=== PATIENT | male | born 1965 | race Caucasian/White ===

== ENCOUNTER 2019-02-06 12:05 | Inpatient (IN) ==
--- NOTE | 2019-01-16 10:23 | PAT Medication Instructions ---
Medication Instructions Date of Service January 16, 2019 Home Medications aspirin [Aspir-81] 81 mg PO QAM carvedilol [Coreg] 12.5 mg PO BID diclofenac sodium 75 mg PO QAM hydrochlorothiazide 50 mg PO QAM lisinopril 20 mg PO QAM ASK your surgeon for instructions diclofenac sodium 75 mg PO QAM DO NOT take the morning of surgery hydrochlorothiazide 50 mg PO QAM lisinopril 20 mg PO QAM Take morning of surgery With a small sip of water, OTHERWISE NOTHING TO EAT OR DRINK AFTER MIDNIGHT: aspirin [Aspir-81] 81 mg PO QAM carvedilol [Coreg] 12.5 mg PO BID Take evening before surgery carvedilol [Coreg] 12.5 mg PO BID Other Notes If you have any questions please call us at [phone] or [phone] or [phone] or [phone]
--- NOTE | 2019-01-16 12:34 | Anesthesiology Consultation ---
Date of Service January 16, 2019 Assessment & Plan (1) Encounter for pre-operative examination: - Cardio= 01/08/19= S/P cardiac cath done 01/03/19 noting dCX 50%. Moderate diffuse disease of the terminal AV groove branch and terminal LAD. No critical blockages noted [id number] global HK of LV EF 45-50% (EF improved from 35% after starting Coreg per cardio). Coreg dose further increased at cardio appt 01/08. Scheduled for sleep study (02/01). "Patient at this point is an acceptable risk to proceed with the above intended right hip surgery provided [he] be monitored for ischemia treated accordingly keeping pulse oximetry above 90% at all times and HCT above 30 at all times." Patient s/p sleep study 02/01 ([facility]; P: [phone]). Attempting to obtain results of sleep study report prior to surgery. If able to be obtained, will add addendum indicating results. - PCP= 01/23/19= "medically cleared for surgery." Chart Review Chart Review: Acceptable Risk for Surgery and Patient seen in Pre Admission T esting Teaching & Discussion Pre-Anesthesia Teaching/Discussion Notes: Instructed NPO after midnight before surgery,except medications with 15 cc of water. Medication instructions provided according to the PAT guidelines. History Surgery Operation Date: 02/06/19 09:45 Proposed Procedures p Right Total Hip Arthroplasty - Puneet De La Cruz DO Height/Weight Height: 6 ft Weight: 132.9 kg Allergies Allergy/AdvReac Type Severity Reaction Status Date / Time No Known Allergies Allergy Verified 01/12/19 08:46 Medications Home Medications Medication Instructions Recorded Confirmed Last Taken aspirin [Aspir-81] 81 mg PO QAM 01/12/19 01/12/19 Unknown carvedilol [Coreg] 12.5 mg PO BID 01/12/19 01/12/19 Unknown diclofenac sodium 75 mg PO QAM 01/12/19 01/12/19 Unknown hydrochlorothiazide 50 mg PO QAM 01/12/19 01/12/19 Unknown lisinopril 20 mg PO QAM 01/12/19 01/12/19 Unknown Past Medical History Medical History CAD (coronary artery disease) NON-OBSTRUCTIVE Hyperlipidemia BORDERLINE Hypertension TONI (obstructive sleep apnea) POSSIBLE; PLAN FOR FUTURE SLEEP STUDY Obesity Osteoarthritis Past Family History Family History Father Family history of reaction to anesthesia POST OP CARDIAC SURGERY-"FATHER WAS IN AND OUT FOR A WEEK" Past Surgical History Surgical History History of cardiac cath 12/2018= NO STENTS History of total hip arthroplasty LEFT Past Anesthesia History No Hx of Anesthesia Complications Father- Post-op "in and out of it" for a week History of PONV No Motion Sickness Screening History of Motion Sickness: No Social History Smoking Status: Never smoker Do You Dip or Chew Tobacco: No Hx Alcohol Use: No Hx Substance Use: No substance use type: does not use Exercise / Class Metabolic Activity II 4-5 Yardwork/Stairs/Walk up hill Review of Systems Patient denies chest pain, shortness of breath, dyspnea on exertion, cough, wheezing, palpitations. Physical Exam Vital Signs VITALS BP 132/78 P 49 TEMP 97.8 SP02 96%RA RESP 18 PHYSICAL Full neck and c-spine range of motion. Full TMJ range of motion. TMD 3.5 finger breaths Mallampati Score 3 Dentition: several chipped sides/molars per patient, missing sides Lungs: clear throughout to auscultation Cardiac: regular rate and rhythm, no murmurs noted Spine: normal Carotid arteries: negative bruit Extremities: no edema Testing Electrocardiogram Date: 01/03/19 NSR with sinus arrhythmia at 74bpm. Chest X-Ray Date: 01/12/19 Findings: + NAD No acute cardiopulmonary findings. Mild cardiomegaly. Echocardiogram Date: 11/17/18 Mild to moderately technical difficulty 2/2 poor acoustic windows. Global HK 46%. Grade I DD. Trace to mild TR. Borderline high PAP 32mmhg. Stress Test Date: 12/19/18 Type: nuclear (LEXISCAN) No reversible defects however there appears to be transient ischemia dilatation of the LV cavity suggestive of multivessel/balanced ischemia. Ischemic ST/T changes on stress EKG. EF 35%. Global HK. Suggestive of dilatory cardiomyopathy. Pulse oximetry stable between 94-98% O2 on RA. Cardiac Catheterization Date: 01/03/19 dCX 50%. Moderate diffuse disease of the terminal AV groove branch ang terminal LAD. No critical blockages noted [id number] global HK of LV EF 45-50% (EF improved from 35% after starting Coreg per cardio). Laboratory Results 01/16/19 12:54 01/16/19 12:54 Blood Type O Positive 01/16/19 12:54 Antibody Screen NEGATIVE 01/16/19 12:54 PT 10.3 Seconds (9.0-12.0) 01/16/19 12:54 INR 1.0 (0.9-1.1) 01/16/19 12:54 APTT 29.1 Seconds (21.0-31.0) 01/16/19 12:54 Hemoglobin A1c 6.3 % (4.5-5.6) H 01/16/19 12:54 Urine Color Yellow 01/16/19 Unknown Urine Appearance Clear (Clear) 01/16/19 Unknown Urine pH 5.0 (4.5-7.5) 01/16/19 Unknown Ur Specific [place] 1.020 (1.000-1.030) 01/16/19 Unknown Urine Protein Negative (Negative) 01/16/19 Unknown Urine Glucose (UA) Negative (Negative) 01/16/19 Unknown Urine Ketones Negative (Negative) 01/16/19 Unknown Urine Nitrite Negative (Negative) 01/16/19 Unknown Ur Leukocyte Esterase Negative (Negative) 01/16/19 Unknown Urine WBC (Auto) 1-5 /hpf (0-5) 01/16/19 Unknown Urine RBC (Auto) 0-4 /hpf (0-4) 01/16/19 Unknown U Hyaline Cast (Auto) 1-5 /lpf (0-5) 01/16/19 Unknown U Epithel Cells (Auto) 0-5 /lpf (0-5) 01/16/19 Unknown Urine Bacteria (Auto) Negative (Negative) 01/16/19 Unknown
[2019-01-16 13:27] LABS: Basophils # (auto) 0.04 K/uL (0-0.2); Basophils % (auto) 0.5 %; Eosinophils # (auto) 0.18 K/uL (0-0.5); Eosinophils % (auto) 2.4 %; Hematocrit (blood only) 43.3 % (42-52); Hemoglobin 15.3 g/dL (14.0-18.0); Immature Granulocytes # (auto) 0.06 K/uL (0.00-0.02); Immature Granulocytes % (auto) 0.8 %; Lymphocytes # (auto) 1.72 K/uL (1.2-3.4); Lymphocytes % (auto) 23.1 %; Mean Corpuscular Hgb Conc 35.3 g/dL (32-36); Mean Corpuscular Volume 87.1 fL (80-100); Mean Platelet Volume 11.3 fL (7.4-10.4); Monocytes # (auto) 0.94 K/uL (0.11-0.59); Monocytes % (auto) 12.6 %; Neutrophils # (auto) 4.52 K/uL (1.4-6.5); Neutrophils % (auto) 60.6 %; Platelet Count 242 K/uL (130-400); RDW Coefficient of Variation 13.1 % (11.5-14.5); Red Blood Count 4.97 M/uL (4.7-6.1); White Blood Count 7.46 K/uL (4.8-10.8)
[2019-01-16 13:34] LABS: Appearance Urine Clear (Clear); Bacteria Urine Automated Negative (Negative); Bilirubin Urine Negative (Negative); Blood Urine 1+ (Negative); Color Urine Yellow; Epithelial Cell Urine Auto 0-5 /lpf (0-5); Glucose Urine UA Negative (Negative); Ketones Urine Negative (Negative); Leukocyte Esterase Urine Negative (Negative); Nitrite Urine Negative (Negative); Protein Urine Negative (Negative); RBC Urine Automated 0-4 /hpf (0-4); Urobilinogen Urine Negative (Negative)
[2019-01-16 13:42] LABS: Partial Thromboplastin Ratio 1.1; Partial Thromboplastin Time 29.1 Seconds (21.0-31.0); Prothrombin Time 10.3 Seconds (9.0-12.0)
[2019-01-16 13:49] LABS: Albumin Level 4.2 gm/dl (3.4-5.0); Calcium 9.1 mg/dl (8.5-10.1); Creatinine Clr Calc Pharmacy 94.5 ml/min; Est GFR (African American) 74.5; Est GFR (Non-African American) 64.2; Potassium 3.6 mmol/L (3.5-5.1)
[2019-01-16 14:00] LABS: Estimated Average Glucose 134 mg/dl; Hemoglobin A1C 6.3 % (4.5-5.6)
--- NOTE | 2019-01-16 14:05 | XRay Report ---
XR chest Pre-admission PA/Lat CLINICAL HISTORY: Preoperative evaluation. COMPARISON STUDY: No previous studies for comparison. FINDINGS: Lung volumes are normal. There is no pneumothorax or pleural effusion. There is no consolid ation or evidence for pulmonary edema. There is mild cardiomegaly. Mediastinal contours are otherwise normal. IMPRESSION: 1. No acute cardiopulmonary findings. 2. Mild cardiomegaly. Electronically signed by: Álvaro Truong M.D. 01/16/2019 2:04 PM
--- NOTE | 2019-02-05 17:31 | History & Physical Report ---
Date of Service February 05, 2019 Assessment & Plan (1) Degenerative joint disease (DJD) of hip: I have indicated the patient for right posterior total hip replacement. The risks, benefits and complications of surgery were explained to the patient which include but not limited to infection, acute blood loss, DVT/PE, injury to nerves, vessels, bone, soft tissue, arthrofibrosis, chronic pain, failure of the prosthesis, hip dislocation, leg length discrepancy, need for additional surgery, cardiac and pulmonary events and . The patient wished to proceed with surgery and informed consent was obtained at this time. We will plan for ASA BID post-operatively for DVT prophylaxis. Upon discharge the patient will be discharged home with home health services. Appropriate clearances by PCP and cardio were obtained. History of Present Illness Chief Complaint: Right hip pain/djd Primary Care Provider: Dr. Kylee Vergara The patient is a 53 year old male who presents with complaints of severe right hip pain and DJD. The patient has failed outpatient conservative treatments to this point which included NSAIDS, corticosteroid injection and home exercise, walking program. The patient's pain and limited function have progressed to the point where they severely hinder their activities of daily living and they no longer tolerate exercise programs. They are requesting to proceed with total hip replacement surgery. Allergies Allergy/AdvReac Type Severity Reaction Status Date / Time No Known Allergies Allergy Verified 02/06/19 12:36 Home Medications Home Medications Medication Instructions Recorded Confirmed Type aspirin [Aspir-81] 81 mg PO QAM 01/12/19 02/06/19 History carvedilol [Coreg] 12.5 mg PO BID 01/12/19 02/06/19 History diclofenac sodium 75 mg PO QAM 01/12/19 02/06/19 History hydrochlorothiazide 50 mg PO QAM 01/12/19 02/06/19 History lisinopril 20 mg PO QAM 01/12/19 02/06/19 History Past Med/Surg History Medical History CAD (coronary artery disease) NON-OBSTRUCTIVE Hyperlipidemia BORDERLINE Hypertension TONI (obstructive sleep apnea) POSSIBLE; PLAN FOR FUTURE SLEEP STUDY Obesity Osteoarthritis Surgical History History of cardiac cath 12/2018= NO STENTS History of total hip arthroplasty LEFT Family History Father Family history of reaction to anesthesia POST OP CARDIAC SURGERY-"FATHER WAS IN AND OUT FOR A WEEK" Social History Preferred Language: Mohawk Communication Ability: Effective Drywaller Required: No Beliefs That Will Affect Care: None Current Living Situation: Spouse and Family Other Information That Helps Us Care for You: No Feels Safe at Home: Yes Safety Concerns: Feels Safe At This Time Smoking Status: Never smoker Hx Alcohol Use: No Hx Substance Use: No Review of Systems All systems reviewed & are unremarkable except as noted in HPI & below Physical Exam Physical Exam: RLE NVSI +EHL/FHL/TA/GS SILT grossly, +2 DP pulse, compartments soft NT, limited painful ROM. Constitutional: WD/WN, vitals as above Eyes: PERRL, conjunctivae normal, anicteric sclerae ENMT: external ear and nose normal, oropharynx normal Neck: trachea midline, no thyromegaly Respiratory: normal respiratory effort, lungs clear to auscultation Cardiovascular: RRR, no murmur, no edema Gastrointestinal (Abdomen): normal bowel sounds, soft, nontender, no hepatosplenomegaly Musculoskeletal: no cyanosis or clubbing, extremities motor strength 5/5 Skin: no rashes, warm and dry Neurologic: patellar DTR's 2+ bilat, sensation intact Psychiatric: A+Ox3, euthymic affect Lymphatic: no cervical or axillary lymphadenopathy Results & Data Diagnostic Findings Multiple views of the hip demonstrates severe DJD with complete loss of the joint space. +osteophytes, +sclerosis, +subchondral cysts.
[~2019-02-06 12:05] MED LIST: ACETAMINOPHEN 500 MG TAB PO SCH; BUPIVACAINE 0.5 % 5 MG/1 ML PF 10ML VIAL ONE; CEFAZOLIN 3000MG 65 ML IV SCH; CeleBREX 200 MG CAP PO SCH; FAMOTIDINE 20 MG TAB PO SCH; GABAPENTIN 300 MG x 3 PO SCH; ROPIVACAINE 0.5% HCL/PF 150 MG, BUPIVACAINE 0.5% MPF 30 ML, EPINEPHrine 30MG/30ML (OR U... INFIL SCH; TRANEXAMIC ACID 1,000 MG **IV Intra-op IV SCH; TRANEXAMIC ACID 1,000 MG **IV Pre-op IV SCH; dexAMETHasone 4 MG TAB PO SCH
[2019-02-06] MEDS: LR 500ML BOLUS, THEN 15ML/HR IV SCH ×2 (12:41→16:11)
--- NOTE | 2019-02-06 13:34 | History & Physical Bridge Note ---
Date of Service February 06, 2019 History & Physical Bridge Note I have examined the patient, reviewed the History & Physical and in the interval since the performance of the History & Physical I have noted the following changes of clinical significance: no changes noted
[2019-02-06] MEDS ORDERED: EPINEPHrine INJ 1 MG/ML AMP ONE (13:39)
[2019-02-06] MEDS ORDERED: LIDOCAINE HCL 2% 2 ML VIAL/AMP(20MG/ML) INFIL ONE (14:11)
[2019-02-06] MEDS ORDERED: fentaNYL citrate 100 MCG/2 ML VIAL ONE (14:11)
[2019-02-06] MEDS ORDERED: MIDAZOLAM HCL 1 MG/ML 2ML VIAL ONE ×2 (14:11)
[2019-02-06] MEDS ORDERED: PROPOFOL IV EMULSION 10 MG/ML 20 ML VIAL IV ONE ×3 (14:11→18:28)
[2019-02-06] MEDS ORDERED: ORTHO JOINT ANESTHETIC ONE (15:49)
[2019-02-06] MEDS ORDERED: BACITRACIN INJ 50,000 UNIT VIAL ONE (15:49)
[2019-02-06] MEDS ORDERED: POVIDONE-IODINE OP SOLN 30 ML BTL ONE (15:49)
[2019-02-06] MEDS ORDERED: ONDANSETRON INJ 2 MG/ML 2 ML VIAL IV PRN ×2 (16:57→19:56)
[2019-02-06] MEDS ORDERED: ePHEDrine sulfate 50 MG/ML AMP IV PRN (16:57)
[2019-02-06] MEDS ORDERED: ATROPINE SULFATE 0.1 MG/ML 10ML SYR IV PRN (16:57)
[2019-02-06] MEDS ORDERED: fentaNYL citrate 100 MCG/2 ML VIAL IV PRN (16:57)
[2019-02-06] MEDS ORDERED: ONDANSETRON INJ 2 MG/ML 2 ML VIAL ONE (17:01)
[2019-02-06] MEDS ORDERED: DEXAMETHASONE SOD INJ 4 MG/ML VIAL ONE (17:01)
[2019-02-06] MEDS ORDERED: DiphenhydrAMINE HCL 50 MG/ML VIAL ONE (17:01)
[2019-02-06] MEDS ORDERED: ePHEDrine sulfate 50 MG/ML SYR ONE (17:25)
[2019-02-06] MEDS ORDERED: PHENYLEPHRINE 100MCG/ML 5ML SYR ONE (17:39)
[2019-02-06] MEDS ORDERED: ALBUMIN HUMAN 5% 12.5 GM/250 ML VIAL IV ONE (17:55)
--- NOTE | 2019-02-06 18:39 | Post Operative Brief Note ---
Immediate Post Op Note v1 Date of Surgery February 06, 2019 Pre & Post Diagnosis Operation Date: 02/06/19 14:45 Pre-Op Diagnosis: RIGHT HIP OSTEOARTHRITIS Post-Op Diagnosis: RIGHT HIP OSTEOARTHRITIS Procedure Operation Date: 02/06/19 14:45 Actual Procedures p Right Total Hip Arthroplasty, uncemented (Right) - Puneet De La Cruz DO Surgeon Puneet De La Cruz DO Steam Powerplant Supervisor Eduardo Scott Estimated Blood Loss 175 Findings Consistent with Post-Op Diagnosis Fluids 800 cc LR Specimens femoral head Anesthesia Type Spinal MAC Complications none Disposition Disposition: Recovery Room Overlapping Procedure I was present for: the critical portions of procedure. I was immediately available: during the entire case. Back up surgeon: was not required during procedure.
--- NOTE | 2019-02-06 18:49 | Operative Report ---
Post Operative Report Pre & Post Diagnosis Operation Date: 02/06/19 14:45 Pre-Op Diagnosis: RIGHT HIP OSTEOARTHRITIS Post-Op Diagnosis: RIGHT HIP OSTEOARTHRITIS Procedure Operation Date: 02/06/19 14:45 Actual Procedures p Right Total Hip Arthroplasty, uncemented (Right) - Puneet De La Cruz DO Surgeon Puneet De La Cruz DO Ornamental Ironworker Eduardo Scott Estimated Blood Loss 175 Findings Consistent with Post-Op Diagnosis Specimens Femoral head Anesthesia Type Spinal MAC Complications none Disposition Disposition: Recovery Room Indications The patient is a 53-year-old male who presents with severe progressive right hip DJD who has failed outpatient conservative treatments. I indicated the patient for a total hip replacement and the risks and benefits were explained in detail which included but not limited to infection, bleeding, blood clot, damage to surrounding bone, nerves, vessels, soft tissue, hip dislocation, failure of the prosthesis, leg length discrepancy, need for additional surgery and . The patient agreed to proceed with replacement of the hip and informed consent was obtained. Appropriate clearances were obtained. Description of Procedure Following induction of adequate spinal anesthesia, the patient was transferred to the OR table and placed in lateral decubitus position with left hip down. The right hip was prepped and draped in the typical sterile fashion. A timeout was performed, patient identified and site gautam confirmed. Appropriate antibiotics were given. A standard posterolateral/Josh-Langenbeck incision was made. Subcutaneous tissue was sharply dissected. Electrocautery was utilized for hemostasis. The fascia was incised throughout the length of the wound and retracted with the Charnley retractor. The bursa was taken down and the short external rotators were identified. The piriformis was tagged with #1 Vicryl. The short external rotators and capsule were divided from the posterior aspect of the femur using electrocautery. The posterior capsule was tagged with #1 Vicryl. Both external rotators and posterior capsule were swept posterior and protected, along with protecting the sciatic nerve. The hip was dislocated by flexion and internally rotation in a controlled manner and exposure of the femoral neck was gained with an old-style Hohmann and a blunt cobra retractor. A femoral cutting guide was utilized for making the appropriate level femoral neck cut with reciprocating saw. The femoral head was removed, measured and reserved on the back table. Next, attention was turned to the acetabulum. A posterior and anterior offset retractor was placed to gain adequate exposure. Acetabular labrum as well as posterior capsule elements were removed using electrocautery and forceps. Fovea centralis was cleared of all soft tissue. Sequential reaming was performed starting at 48 mm and carried up to a 55 mm and decision was made to proceed with impaction of a 50 mm trabecular metal cup. This was impacted and held using a single 30 mm bone screw. The trial acetabular liner was placed at this time. Next, attention was turned to the proximal femur where a Bovie and pickup was used to further clear short external rotators from their insertion on the femur. Box osteotome and canal finder was used to gain access to the femoral canal and the lateral reamer on power was used to further open the proximal lateral canal. Sequentially rasping was carried up to a 15 which gave good fit and fill of the proximal femur. A trial reduction was carried out with a extended offset femoral neck component a 40+3.5 mm femoral head. The trial reduction was stable in all degrees of rotation with no [id number] impingement. The hip was dislocated, trial components were removed and access to the acetabulum was re-established. The trial liner was removed and the cup was irrigated to ensure all debris was removed. The final acetabular liner was inserted and properly seated in the cup. Access to the femur was once more gained and the size 15 femoral stem with extended offset was impacted into position. The hip was once more assessed with the 40+3.5 mm femoral head. Stability was accessed and found to be excellent with equal leg lengths. The hip was dislocated for the last time and the final 40+3.5 ceramic femoral head was impacted in place and the hip was reduced. Range of motion was checked once again and found to be stable. The wound was copiously irrigated with sterile saline solution. The annie-incisional soft tissue was injected utilizing [place] ortho mix which includes a combination of Ropivicaine 0.5% 150mg, Bupivicaine 0.5%/Epinephrine 1:200,000 30ml, Toradol 30mg, Dexamethasone 4mg, Ketamine 10mg, Clonidine 100mcg and NSS 30ml Orthomix solution. The piriformis, external rotators and capsule were repaired to the greater trochanter through bone tunnels using #5 FiberWire. The fascia was closed using #1 Vicryl, subcutaneous tissue was closed using 2-0 Vicryl, and skin was closed with marley. Sterile dressings were applied which included silverlon dressing. The patient tolerated the procedure well and was transported to PACU in stable condition. Due to the complex nature of the procedure, the entire surgery was performed with the operational assistance of Eduardo Scott PA-C. The certified ophthalmic assistant, under direct supervision, was involved in the actual performance of all aspects of the surgical procedure including patient positioning, hemostasis, tissue retraction, instrument management and wound closure. I attest to the content of the Intraoperative Record and any orders documented therein. Any exceptions are noted below.
--- NOTE | 2019-02-06 19:35 | Anesthesiology Progress Note ---
Date of Service February 06, 2019 Anesthesia Post Procedure Vital Signs Vital Signs: Temp Pulse Pulse Resp BP BP Pulse Ox 02/06/19 19:20 63 24 156/75 H 99 02/06/19 19:10 76 17 137/73 96 02/06/19 19:02 36.3 C L 70 16 116/67 95 02/06/19 12:38 36.9 C 82 20 155/99 H 96 Pain Intensity Right Hip: Pain Intensity: 0 Notes Mental Status: alert / awake / arousable Patient Amnestic to Procedure: Yes Nausea / Vomiting: adequately controlled Pain: adequately controlled Airway Patency, RR, SpO2: stable & adequate BP & HR: stable & adequate Hydration State: stable & adequate Neuraxial Anesthesia: was administered and sensory block is resolving Anesthetic Complications: no major complications apparent
--- NOTE | 2019-02-06 19:37 | XRay Report ---
AP PELVIS, CROSSTABLE LATERAL RIGHT HIP History: Right total hip arthroplasty. Degenerative arthritis. Postop. FINDINGS: The patient is status post a right total hip arthroplasty. The hardware is intact. No fract ure or dislocation. Skin marley are in place. Evidence for prior left total hip arthroplasty. IMPRESSION: Right total hip arthroplasty. No evidence for hardware complication Electronically signed by: Win Ramirez M.D. 02/06/2019 7:36 PM
[2019-02-06] MEDS ORDERED: OXYCODONE HCL IR 5 MG TAB (IMMEDIATE RELEASE) PO PRN (19:56)
[2019-02-06] MEDS ORDERED: NALOXONE HCL 0.4 MG/1 ML VIAL/CARP IV PRN (19:56)
[2019-02-06] MEDS ORDERED: METOCLOPRAMIDE HCL INJ 5 MG/ML 2 ML VIAL IV PRN (19:56)
[2019-02-06] MEDS ORDERED: BISACODYL 10 MG SUPP PR PRN (19:56)
[2019-02-06] MEDS ORDERED: HYDROmorphone INJ 0.5 MG/0.5 ML SYR IV PRN (19:56)
[2019-02-06] MEDS ORDERED: MAGNESIUM HYDROXIDE SUSP 30 ML UDC PO PRN (19:56)
[2019-02-06] MEDS: SODIUM CHLORIDE 0.9% 1000ML 1,000 ML IV SCH (20:08)
[2019-02-06] MEDS ORDERED: SENNA 8.6 MG TAB PO SCH (21:00)
--- NOTE | 2019-02-06 21:15 | Orthopedic Progress Note ---
Date of Service February 06, 2019 Assessment & Plan (1) Degenerative joint disease (DJD) of hip: s/p Right JERROD -Ancef x 24 -DVT ppx: ASA BID, SCDs, TEDS -WBAT RLE -Posterior hip precautions -PT/OT -PO XR - Well aligned well fixed orthopedic prothesis without fracture/dislocation -am labs -DC planning - home with HH Subjective Post Operative Progress Note Patient seen in PACU, comfortable, denies complaints, pain well controlled, no acute issues. Physical Exam Vital Signs (Past 24 Hours): Last Vital Signs Temp 36.4 C L 02/06/19 21:10 Pulse 74 02/06/19 21:10 Resp 20 02/06/19 21:10 BP 147/74 H 02/06/19 21:10 Pulse Ox 96 02/06/19 21:10 Physical Exam: RLE NVSI +EHL/FHL/TA/GS SILT grossly, +2 DP pulse, compartments soft NT, dressing cdi. Constitutional: WD/WN, vitals as above
[2019-02-06] MEDS: ACETAMINOPHEN 500 MG TAB PO SCH (21:36)
[2019-02-06] MEDS: CARVEDILOL 12.5 MG TAB PO SCH (21:36)
[2019-02-06] MEDS: KETOROLAC 30 MG/ML VIAL IV SCH (21:36)
[2019-02-06] MEDS: DOCUSATE SODIUM 100 MG CAP PO SCH (21:36)
[2019-02-07] MEDS: CEFAZOLIN 2000MG 2,000 MG/15 ML SYR IV SCH ×2 (00:14→08:42)
[2019-02-07] MEDS ORDERED: PNEUMOCOCCAL POLYSACCHARIDES 25 MCG/0.5 ML VIAL/SYR IM ONE (01:30)
[2019-02-07] MEDS ORDERED: PNEUMOCOCCAL ADMINISTRATION CHARGE ONE (01:30)
[2019-02-07] MEDS ORDERED: INFLUENZA ADMINISTRATION CHARGE ONE (01:30)
[2019-02-07] MEDS ORDERED: INFLUENZA VIRUS QUAD VACCINE 0.5 ML SYR IM ONE (01:30)
[2019-02-07] MEDS: KETOROLAC 30 MG/ML VIAL IV SCH ×2 (06:03→12:19)
[2019-02-07] MEDS: ACETAMINOPHEN 500 MG TAB PO SCH ×2 (06:04→13:59)
[2019-02-07] MEDS: SODIUM CHLORIDE 0.9% 1000ML 1,000 ML IV SCH (06:04)
[2019-02-07 06:47] LABS: Basophils # (auto) 0.01 K/uL (0-0.2); Basophils % (auto) 0.1 %; Hematocrit (blood only) 35.2 % (42-52); Hemoglobin 12.4 g/dL (14.0-18.0); Immature Granulocytes # (auto) 0.05 K/uL (0.00-0.02); Immature Granulocytes % (auto) 0.4 %; Lymphocytes # (auto) 0.84 K/uL (1.2-3.4); Lymphocytes % (auto) 6.6 %; Mean Corpuscular Hgb Conc 35.2 g/dL (32-36); Mean Corpuscular Volume 86.7 fL (80-100); Mean Platelet Volume 10.4 fL (7.4-10.4); Monocytes # (auto) 0.67 K/uL (0.11-0.59); Monocytes % (auto) 5.3 %; Neutrophils # (auto) 11.13 K/uL (1.4-6.5); Neutrophils % (auto) 87.6 %; Platelet Count 214 K/uL (130-400); RDW Coefficient of Variation 12.8 % (11.5-14.5); RDW Standard Deviation 40.9 fL (36.4-46.3); Red Blood Count 4.06 M/uL (4.7-6.1)
[2019-02-07 07:13] LABS: BUN Creatinine Ratio 16.8 (10-20); Est GFR (African American) 87.7; Est GFR (Non-African American) 75.7; Potassium 3.6 mmol/L (3.5-5.1)
--- NOTE | 2019-02-07 08:27 | Anesthesiology Progress Note ---
Date of Service February 07, 2019 Anesthesia Post Procedure Vital Signs Vital Signs: Temp Pulse Pulse Pulse Resp BP BP 02/07/19 07:01 36.5 C 74 18 151/87 H 02/07/19 03:30 36.4 C L 69 18 137/79 02/07/19 00:20 02/07/19 00:00 36.5 C 72 18 131/77 02/06/19 22:56 36.4 C L 76 18 154/77 H 02/06/19 21:53 36.4 C L 75 18 171/76 H 02/06/19 21:10 36.4 C L 74 20 147/74 H 02/06/19 20:26 36.4 C L 74 18 160/87 H 02/06/19 19:50 36.6 C 74 16 145/78 H 02/06/19 19:40 76 15 132/71 02/06/19 19:30 36.3 C L 78 19 118/92 02/06/19 19:20 63 24 156/75 H 02/06/19 19:10 76 17 137/73 02/06/19 19:02 36.3 C L 70 16 116/67 02/06/19 12:38 36.9 C 82 20 155/99 H Pulse Ox Pulse Ox 02/07/19 07:01 99 02/07/19 03:30 98 02/07/19 00:20 96 02/07/19 00:00 96 02/06/19 22:56 96 02/06/19 21:53 95 02/06/19 21:10 96 02/06/19 20:26 97 02/06/19 19:50 98 02/06/19 19:40 99 02/06/19 19:30 99 02/06/19 19:20 99 02/06/19 19:10 96 02/06/19 19:02 95 02/06/19 12:38 96 Pain Intensity Right Hip: Pain Intensity: 0 Notes Notes: patient in BR, ELIEL.
[2019-02-07] MEDS: DOCUSATE SODIUM 100 MG CAP PO SCH (08:38)
[2019-02-07] MEDS: CARVEDILOL 12.5 MG TAB PO SCH (08:39)
[2019-02-07] MEDS ORDERED: MULTIVITAMIN TAB PO SCH (09:00)
[2019-02-07] MEDS ORDERED: LISINOPRIL 20 MG TAB PO SCH (09:00)
--- NOTE | 2019-02-07 10:16 | Orthopedic Progress Note ---
Date of Service February 07, 2019 Assessment & Plan (1) Degenerative joint disease (DJD) of hip: s/p Right JERROD POD#1 -Ancef x 24 -DVT ppx: ASA BID, SCDs, TEDS -WBAT RLE -Posterior hip precautions -PT/OT -PO XR - Well aligned well fixed orthopedic prothesis without fracture/dislocation -am labs - hgb 12.4 -DC planning - home with HH Subjective Post Operative Progress Note Patient seen in PACU, comfortable, denies complaints, pain well controlled, no acute issues. Physical Exam Vital Signs (Past 24 Hours): Last Vital Signs Temp 36.5 C 02/07/19 07:01 Pulse 74 02/07/19 07:01 Resp 18 02/07/19 07:01 BP 151/87 H 02/07/19 07:01 Pulse Ox 99 02/07/19 07:01 Physical Exam: RLE NVSI +EHL/FHL/TA/GS SILT grossly, +2 DP pulse, compartments soft NT, dressing cdi. Constitutional: WD/WN, vitals as above
[2019-02-07] MEDS ORDERED: CeleBREX 200 MG CAP PO SCH (21:00)
[2019-02-07] MEDS ORDERED: ASPIRIN 325 MG ECTAB PO SCH (21:00)
--- NOTE | 2019-02-07 21:21 | Discharge Summary ---
Date of Service February 07, 2019 Admission HPI Per Admitting Provider The patient is a 53 year old male who presents with complaints of severe right hip pain and DJD. The patient has failed outpatient conservative treatments to this point which included NSAIDS, corticosteroid injection and home exercise, walking program. The patient's pain and limited function have progressed to the point where they severely hinder their activities of daily living and they no longer tolerate exercise programs. They are requesting to proceed with total hip replacement surgery. Principal Diagnosis Right total hip replacement Discharge Exam RLE NVSI +EHL/FHL/TA/GS SILT grossly, +2 DP pulse, compartments soft NT, dressing cdi. Constitutional WD/WN, vitals as above Eyes PERRL, conjunctivae normal, anicteric sclerae ENMT external ear and nose normal, oropharynx normal Neck trachea midline, no thyromegaly Respiratory normal respiratory effort, lungs clear to auscultation Cardiovascular RRR, no murmur, no edema Gastrointestinal (Abdomen) normal bowel sounds, soft, nontender, no hepatosplenomegaly Musculoskeletal no cyanosis or clubbing, extremities motor strength 5/5 Skin no rashes, warm and dry Neurologic patellar DTR's 2+ bilat, sensation intact Psychiatric A+Ox3, euthymic affect Lymphatic no cervical or axillary lymphadenopathy Discharge Data Allergies Allergy/AdvReac Type Severity Reaction Status Date / Time No Known Allergies Allergy Verified 02/06/19 12:36 Consultations 02/07/19 08:00 Consult Case Management - Discharge Planning Routine Procedures Performed Operation Date: 02/06/19 14:45 Actual Procedures p Right Total Hip Arthroplasty, uncemented (Right) - Puneet De La Cruz DO Hospital Course (1) Degenerative joint disease (DJD) of hip: The patient is a 53 -year-old male who presents with long standing history of severe right DJD and failed outpatient conservative treatments including NSAIDs, bracing, injections and home walking/exercise program. The patient's symptoms have progressed to the point where it has been difficult to perform even normal activities of daily living. I indicated the patient for a right total hip arthroplasty, the risks, benefits and complications of the procedure include but not limited to infection, bleeding, damage to bone, nerves, vessels, surrounding soft tissue, may develop blood clots, loss of function, leg length discrepancy, dislocation, failure of the components, loosening of the components, the need for additional surgery and . The patient wished to proceed with surgery at this time and informed consent was obtained. Hospital Course: On 4 the patient was taken to the operating room, adequate anesthesia administered and underwent a right total hip arthroplasty. The patient tolerat ed the procedure well and was taken to the PACU in stable condition. Post- operatively the patient was started on a DVT ppx medication and given appropriate IV antibiotics. Consults were placed to physical therapy, occupational therapy and case management. On POD#1, the patient did well overnight and their pain was well controlled. Labs were drawn and the Hgb was 12.4. The patient progressed well with PT. Dressings were changed at this time and the incision was clean, dry and intact. The patients hospital stay was relatively uneventful and they were deemed stable by the orthopedic team and consultants to be discharged home with HH on 02/06/19. Discharge Instructions: Upon discharge the patient may weight bear as tolerates through their operative extremity. They were instructed to keep the incision clean and dry at all times. The patient may shower but should not submerge the incision, avoid bathing, pools and hot tubes. The patient was given a script for pain medication and should take as instructed. The patient was given a script for DVT ppx ASA 325mg BID and should take as directed. The patient was instructed to not drive or travel for long distances until cleared to do so. If the patient develops any symptoms of fevers, chills, nausea, vomiting, increased redness, swelling, pain or drainage from the surgical site, they should notify the office and/or proceed to the nearest emergency room. The patient should follow up in 10-14 days after surgery for their routine post-operative follow-up appointment and should call the office to confirm the date and time. s/p Right JERROD POD#1 -Ancef x 24 -DVT ppx: ASA BID, SCDs, TEDS -WBAT RLE -Posterior hip precautions -PT/OT -PO XR - Well aligned well fixed orthopedic prothesis without fracture/dislocation -am labs - hgb 12.4 -DC planning - home with HH Total Time Total Time Spent Total Time Spent (In Minutes): >60 minutes Discharge Plan Discharge Items Patient Disposition: Home - Self-Care Reason For Visit: RIGHT HIP OSTEOARTHRITIS PRIMARY UNILATERAL Discharge Diagnosis: Right total hip replacement Discharge Goals: Decrease discomfort, Improve disease control, Improve function, Increase independence and Specific goals Activity: Per 'Additional Instructions' section Lifting: Wait until after follow-up appointment Bathing Comment: No bathing, pools or hot tubs Sexual Activity: Wait until after follow-up appointment Exercise/Sports: Wait until after follow-up appointment Driving/Machine Use Comment: Do not drive till cleared by your surgeon Weightbearing: Right weightbearing Non-emergency contact: Primary Care Provider and Surgeon Call non-emergency contact if: you have any medication questions, your symptoms worsen, your pain is not controlled, your pain is worsening, your pain is unusual for you, your pain is concerning for you, you have a fever, your temperature is above 101, your wound has increased redness, your wound has increased drainage and your wound pain has increased Follow-up/Referrals: Dominick Venegas M.D. [Primary Care Provider] - Diet: Regular Addtl Provider Instructions: ACTIVITY RECOMMENDATIONS: SELF CARE INSTRUCTIONS AFTER TOTAL HIP REPLACEMENT Until the incision and soft tissues around your hip have healed, there is a possibility that the hip prosthesis could dislocate. A. Observe the following precautions to prevent dislocation: 1. Don't bend your hip greater than 90 degrees. 2. Avoid crossing your legs or ankles while standing or lying. 3. Sit with your feet placed 6 inches apart. 4. When sitting, keep your knees below your hips. Sit on a firm surface, avoid deep, soft chairs and couches. Use an elevated toilet seat in the bathroom. 5. Don't bend over at the waist. Use a long handled shoehorn and a sock aid to help you put on your shoes and socks. A .net programmer can help you molded goods spot picker objects that are too high or too low to reach. 6. Keep car riding to a minimum for at least one month after surgery. B. Your balance may be shaky for a while. Use crutches or a walker until directed by your doctor. C. Use hand rails when walking on stairs. D. Wear low heeled shoes with non-slip soles. E. Be sure that your floors are free of things that could trip you - throw rugs, electrical cords, small objects. Avoid wet and waxed floors, especially with crutches and canes. F. Try to walk several times a day with rest periods between. G. Continue with all the exercises taught to you in the hospital. Again, make walking a part of your daily routine. SPECIAL CARE INSTRUCTIONS: VERY IMPORTANT TO READ AND REVIEW A. You may still be at risk for phlebitis and blood clots. 1. Wear surgical stockings (BIBIANA hose) for 2 weeks after surgery to improve circulation and reduce swelling. 2. Take Aspirin 325mg twice daily for 4 weeks or as directed by your doctor. This is your blood thinner. 3. High risk patients may be prescribed a stronger blood thinner if necessary. 4. If you are on Coumadin normally, your family doctor/clerical secretary should monitor your blood work. Expect a phone call the day of or the day after bloodwork is drawn to adjust your dosage. B. You must take antibiotics before having dental work, bladder, bowel and other surgery. Your doctor will provide you with a permanent card to carry describing precautions. C. Call [facility] if you have a fever, redness or swelling around the incision, cloudy drainage from incision, or sudden increase in pain in your hip, not relieved by your regular pain medication. D. Please call the office at if you have any concerns or questions about your operation or recovery. * YOU MAY SHOWER, NO TUB BATHS UNTIL CLEARED BY YOUR DOCTOR. * WEAR BIBIANA HOSE 20 HOURS PER DAY FOR 2 WEEKS. * YOU SHOULD USE A WALKER OR CRUTCHES FOR 2-4 WEEKS. THIS WILL HELP PREVENT STRAIN ON YOUR HIP MUSCLE AND ALLOW IT TO HEAL PROPERLY. YOU MAY WEAN TO A CANE TOLERATED. * MOST PATIENTS WILL HAVE HOME NURSING FOR THERAPY. IF YOU DECIDE TO DO OUTPATIENT PHYSICAL THERAPY, PLEASE SCHEDULE THIS 3 TIMES PER WEEK. * YOU MAY HAVE A LARGE, BAND-DERRICK LIKE DRESSING (SILVERON). THIS WILL REMAIN ON YOUR INCISION FOR 7 DAYS, THEN CAN BE REMOVED. IF INCISION IS LEAKING THROUGH DRESSING, PLEASE CALL THE OFFICE . FOLLOW UP VISIT: If appointment is not already scheduled: Please call [facility] to make a follow-up appointment for 2 weeks after your surgery at . Prescriptions: New aspirin 325 mg Tablet,Delayed Release (Dr/Ec) 325 mg PO BID 28 Days Qty: 56 RF: 0 oxycodone 5 mg Tablet 5 mg PO Q6H PRN (Reason: pain) Qty: 30 RF: 0 sennosides [Senokot] 8.6 mg Tablet 17.2 mg PO HS PRN (Reason: constipation) Qty: 28 RF: 0 celecoxib [Celebrex] 200 mg Capsule 200 mg PO BID PRN (Reason: pain) Qty: 28 RF: 0 acetaminophen [Pain Reliever] 500 mg Tablet 1,000 mg PO Q8 PRN (Reason: pain) Qty: 90 RF: 0 Continued carvedilol [Coreg] 12.5 mg Tablet 12.5 mg PO BID RF: 0 hydrochlorothiazide 50 mg Tablet 50 mg PO QAM RF: 0 lisinopril 20 mg Tablet 20 mg PO QAM RF: 0 Discontinued aspirin [Aspir-81] 81 mg Tablet,Delayed Release (Dr/Ec) 81 mg PO QAM RF: 0 diclofenac sodium 75 mg Tablet,Delayed Release (Dr/Ec) 75 mg PO QAM RF: 0 Stand-Alone Forms: [employer], [facility] [employer]/Other Patient Handouts: Prediabetes, Diabetes Meal Planning Discharge Orders: Discharge Order (Routine); Ordered 02/07/19 Ordered By: Puneet De La Cruz Admission Data Admit Date/Time: 02/06/19 19:07 Attending Provider: Puneet De La Cruz Admit Provider: Puneet De La Cruz Primary Care Provider: Dominick Venegas Service: Surgical Services Other Interventions: Discharge Summary Assessment (RN) Last Done: 02/07/19 15:24 DC Date/Time DO NOT enter until pt leaves facility: 02/07/19 16:17
== END 2019-02-07 16:17 | disposition home or self-care (01) | DRG 470 ==
LOC: ASU 12:05 → 3E 19:07

== ENCOUNTER 2021-03-17 06:58 | Inpatient (IN) ==
--- NOTE | 2021-02-17 12:11 | PAT Medication Instructions ---
Medication Instructions Date of Service February 17, 2021 Home Medications Medication Instructions Recorded acetaminophen [Pain Reliever] 1,000 mg PO Q8 PRN #90 tab 02/07/19 carvedilol [Coreg] 12.5 mg PO BID hydrochlorothiazide 50 mg PO QAM lisinopril 20 mg PO QAM acetaminophen [Pain Reliever] 1,000 mg PO Q8 PRN aspirin [Aspir-81] 81 mg PO DAILY diclofenac sodium [Voltaren] 2 g TOPICAL UD PRN meloxicam [Mobic] 15 mg PO DAILY Continue as directed diclofenac sodium [Voltaren] 2 g TOPICAL UD PRN (just do not use near surgical site within 24 hours of surgery) ASK your surgeon for instructions meloxicam [Mobic] 15 mg PO DAILY DO NOT take the morning of surgery hydrochlorothiazide 50 mg PO QAM lisinopril 20 mg PO QAM Take morning of surgery With a small sip of water, OTHERWISE NOTHING TO EAT OR DRINK AFTER MIDNIGHT: carvedilol [Coreg] 12.5 mg PO BID acetaminophen [Pain Reliever] 1,000 mg PO Q8 PRN (if needed, may be taken up to four hours before surgery) aspirin [Aspir-81] 81 mg PO DAILY Take evening before surgery carvedilol [Coreg] 12.5 mg PO BID acetaminophen [Pain Reliever] 1,000 mg PO Q8 PRN (if needed) Other Notes If you have any questions please call us at [phone] or [phone] or [phone] or [phone]
--- NOTE | 2021-02-18 14:02 | Anesthesiology Consultation ---
Date of Service February 18, 2021 Assessment & Plan (1) Encounter for pre-operative examination: COVID Status: As of 02/18 assessment, patient denies travel to endemic area, known exposure/sick contacts, or symptoms of COVID19. Patient instructed that they and their household members must follow strict social distancing guidelines, wear a mask in public and avoid travel/events/gatherings for 14 days prior to surgery. Preoperative COVID19 testing to be completed prior to surgery per surgeon's arrangements (pt aware). Patient made aware to self-isolate as much as possible between COVID testing and surgery. Pt is fully vaccinated. R JERROD 02/06/19 = SAB + MAC. MULTIPLE attempts to place spinal. Successful placement by Dr Luciano. "T8 spinal, level confirmed, pt c/o nausea, meds given, maintains SV with propofol gtt, no response to surgical stimulation." Abnormal EKG -- will send to cardio for their review at clearance. Chart Review Chart Review: Acceptable Risk for Surgery (pending pcp/cardio clearances) and Patient seen in Pre Admission Testing Teaching & Discussion Instructed NPO after midnight before surgery, except medications with 15 cc of water. Medication instructions provided according to the PAT guidelines. History Surgery Operation Date: 03/17/21 07:45 Proposed Procedures p Right Total Knee Arthroplasty - Puneet De La Cruz DO Height/Weight Height: 6 ft Weight: 134.2 kg Allergies Allergy/AdvReac Type Severity Reaction Status Date / Time No Known Allergies Allergy Verified 02/13/21 15:22 Medications Home Medications Medication Instructions Recorded Confirmed Last Taken carvedilol [Coreg] 12.5 mg PO BID 01/12/19 02/13/21 02/06/19 07:00 hydrochlorothiazide 50 mg PO QAM 01/12/19 02/13/21 02/05/19 07:00 lisinopril 20 mg PO QAM 01/12/19 02/13/21 02/05/19 07:00 acetaminophen [Pain Reliever] 1,000 mg PO Q8 PRN #90 tab 02/07/19 02/13/21 Unknown aspirin [Aspir-81] 81 mg PO DAILY 02/13/21 02/13/21 Unknown diclofenac sodium [Voltaren] 2 g TOPICAL UD PRN 02/13/21 02/13/21 Unknown meloxicam [Mobic] 15 mg PO DAILY 02/13/21 02/13/21 Unknown Past Medical History Medical History (Updated 02/18/21 @ 16:38 by Yves Luz) CAD (coronary artery disease) NON-OBSTRUCTIVE Dilated cardiomyopathy By echo 12/12/2018, EF 35%. By cardiac cath 01/26/2019, EF 45-50%. Mild to moderate global hypokinesis. Hyperlipidemia BORDERLINE Hypertension Obesity TONI (obstructive sleep apnea) "MILD" "BORDERLINE" - DEVICE RECOMMENDED, PT DECLINED Osteoarthritis Pre-diabetes Exercise / Class Metabolic Activity II 4-5 Yardwork/Stairs/Walk up hill Past Family History Family History Father Family history of reaction to anesthesia POST OP CARDIAC SURGERY-"FATHER WAS IN AND OUT FOR A WEEK" Family history of diabetes mellitus Father No problems noted. Mother Family history of diabetes mellitus Past Surgical History Surgical History History of cardiac cath 12/2018= NO STENTS History of total hip arthroplasty LEFT History of total right hip arthroplasty Past Anesthesia History No Hx of Anesthesia Complications and No Family Hx of Anesthesia Complications History of PONV No Hx of PONV and No Hx of Motion Sickness Social History Smoking Status: Never smoker Do You Dip or Chew Tobacco: No Hx Alcohol Use: No Hx Substance Use: No substance use type: does not use Review of Systems Pt denies any recent chest pain, shortness of breath, palpitations, cough, fever, URI, or uncontrolled acid reflux. Physical Exam Vital Signs BP: 122/86 P: 76bpm SPO2: 96% RA T: 97.6 F R: 12 Constitutional + obese ENMT Mouth: + chipped teeth (ground down or chipped on several teeth); no dental restorations and no loose teeth Thyromental Distance: > or= 3.5 Finger Breadths Mallampati Class: II Neck + thick neck and + facial hair (very short stache); neck extension not limited Respiratory normal respiratory effort, lungs clear to auscultation Cardiovascular RRR, no murmur, no edema Vessels: no carotid bruit Testing Laboratory Results 02/18/21 14:21 02/18/21 14:21 PT 10.2 Seconds (9.0-12.0) 02/18/21 14: INR 1.0 (0.9-1.1) 02/18/21 14: APTT 27.9 Seconds (21.0-31.0) 02/18/21 14: Hemoglobin A1c 6.4 % (4.5-5.6) H 02/18/21 14: Urine Color Yellow 02/18/21 14: Urine Appearance Clear (Clear) 02/18/21 14: Urine pH 5.0 (4.5-7.5) 02/18/21: Ur Specific [place] 1.015 (1.000-1.030) 02/18/21 14: Urine Protein Negative (Negative) 02/18/21 14: Urine Glucose (UA) Negative (Negative) 02/18/21: Urine Ketones Negative (Negative) 02/18/21: Urine Nitrite Negative (Negative) 02/18/21 14: Ur Leukocyte Esterase Negative (Negative) 02/18/21 14: Urine WBC (Auto) 0 /hpf (0-5) 02/18/21: Urine RBC (Auto) 0-4 /hpf (0-4) 02/18/21: U Hyaline Cast (Auto) 0 /lpf (0-5) 02/18/21: U Epithel Cells (Auto) 0-5 /lpf (0-5) 02/18/21: Urine Bacteria (Auto) Negative (Negative) 02/18/21 14: Blood Type O Positive 02/18/21 14: Antibody Screen NEGATIVE 02/18/21 14: Electrocardiogram Date: 02/18/21 Findings: + SB @ (59bpm) ST and T wave abnormality, consider inferior ischemia. (TWI in lead III, NS ST depression in aVF and lead II). Chest X-Ray Date: 02/18/21 Findings: + NAD Echocardiogram Date: 11/17/18 EF: 46% Study done with mild to moderate technical difficulty secondary to poor acoustic windows. Dilated left ventricle with increased wall thickness and advanced hyper tensive heart disease changes. Global hypokinesis with depressed LV function at 46%. Correlate clinically. Grade 1 LV diastolic dysfunction. Normal-sized RV and function as evidenced by TAPSE measurement. Normal sized both atria and aortic root. Aortic valve peak gradient 7 mmHg. Mitral valve area 3.5 cm. Trace MR, trace to mild TR by Doppler study. High pulmonary artery pressure at 32 mmHg. No pericardial effusion noted. Stress Test Date: 12/12/18 Resting EF: 35% No reversible defects, however, there appears to be transient ischemic dilatation of the left ventricular cavity which is suggestive of multivessel/balanced ischemia. Dilatation of the left ventricular cavity with a depressed EF of 35% and global hypokinesis suggestive of dilatory cardiomyopathy. Cardiac Catheterization Date: 01/26/19 50% stenosis distal dominant circumflex artery involving the AV groove branch. Otherwise moderate diffuse disease of the terminal AV groove branch and terminal left anterior descending artery. Mild to moderate global hypokinesis of the left ventricle. EF estimated at 45- 50%.
--- NOTE | 2021-02-18 14:40 | XRay Report ---
XR chest Pre-admission PA/Lat CLINICAL HISTORY: Preoperative evaluation. COMPARISON STUDY: Chest radiograph January 16, 2019. FINDINGS: Lung volumes are at the lower limits of normal. Lungs are clear. There is no pneumothorax o r pleural effusion. Cardiac size is stable. Mediastinal contours are normal. There is no evidence for pulmonary edema. IMPRESSION: No acute cardiopulmonary findings. ACT 112: Negative or not required by law. Electronically signed by: Álvaro Truong M.D. 02/18/2021 2:39 PM
[2021-02-18 14:56] LABS: Basophils # (auto) 0.06 K/uL (0-0.2); Basophils % (auto) 0.9 %; Eosinophils # (auto) 0.21 K/uL (0-0.5); Immature Granulocytes # (auto) 0.03 K/uL (0.00-0.02); Immature Granulocytes % (auto) 0.4 %; Lymphocytes # (auto) 2.19 K/uL (1.2-3.4); Lymphocytes % (auto) 31.3 %; Mean Corpuscular Hemoglobin 30.3 pg (25-34); Mean Corpuscular Hgb Conc 34.9 g/dL (32-36); Mean Corpuscular Volume 86.9 fL (80-100); Mean Platelet Volume 10.7 fL (7.4-10.4); Monocytes # (auto) 0.75 K/uL (0.11-0.59); Monocytes % (auto) 10.7 %; Neutrophils # (auto) 3.75 K/uL (1.4-6.5); Neutrophils % (auto) 53.7 %; Platelet Count 252 K/uL (130-400); RDW Coefficient of Variation 12.8 % (11.5-14.5); RDW Standard Deviation 40.6 fL (36.4-46.3); Red Blood Count 4.95 M/uL (4.7-6.1); White Blood Count 6.99 K/uL (4.8-10.8)
[2021-02-18 15:11] LABS: Partial Thromboplastin Ratio 1.1; Partial Thromboplastin Time 27.9 Seconds (21.0-31.0); Prothrombin Time 10.2 Seconds (9.0-12.0)
[2021-02-18 15:20] LABS: Appearance Urine Clear (Clear); Bacteria Urine Automated Negative (Negative); Bilirubin Urine Negative (Negative); Blood Urine Trace (Negative); Cast Urine Automated 0 /lpf (0-5); Color Urine Yellow; Epithelial Cell Urine Auto 0-5 /lpf (0-5); Glucose Urine UA Negative (Negative); Ketones Urine Negative (Negative); Leukocyte Esterase Urine Negative (Negative); Nitrite Urine Negative (Negative); Protein Urine Negative (Negative); RBC Urine Automated 0-4 /hpf (0-4); Specific Gravity Urine 1.015 (1.000-1.030); Urobilinogen Urine Negative (Negative); WBC Urine Automated 0 /hpf (0-5)
[2021-02-18 16:11] LABS: Albumin Level 4.2 gm/dl (3.4-5.0); BUN Creatinine Ratio 14.1 (10-20); Calcium 9.5 mg/dl (8.5-10.1); Creatinine Clr Calc Pharmacy 102.6 ml/min; Est GFR (African American) 82.9; Est GFR (Non-African American) 71.5; Potassium 3.6 mmol/L (3.5-5.1)
[2021-02-19 05:57] LABS: Estimated Average Glucose 137 mg/dl; Hemoglobin A1C 6.4 % (4.5-5.6)
--- NOTE | 2021-02-19 22:11 | Electrocardiogram Report ---
Test Reason : Blood Pressure : / mmHG Vent. Rate : 059 BPM Atrial Rate : 059 BPM P-R Int : 138 ms QRS Dur : 114 ms QT Int : 444 ms P-R-T Axes : 069 005 -11 degrees QTc Int : 439 ms Sinus bradycardia Abnormal ECG No previous ECGs available Confirmed by Alexi Quintanilla ([id number]) on 02/19/2021 10:11:13 PM Referred By: Puneet De La Cruz Confirmed By:Alexi Quintanilla
--- NOTE | 2021-03-13 21:43 | History & Physical Report ---
Date of Service March 17, 2021 Assessment & Plan (1) Degenerative joint disease of knee, right: I have indicated the patient for right total knee replacement. The risks, benefits and complications of surgery were explained to the patient which include but not limited to infection, acute blood loss, DVT/PE, injury to nerves, vessels, bone, soft tissue, arthrofibrosis, chronic pain, failure of the prosthesis, knee dislocation, leg length discrepancy, need for additional surgery, cardiac and pulmonary events and . The patient wished to proceed with surgery and informed consent was obtained at this time. We will plan for 81mg ASA BID post-operatively for DVT prophylaxis. Upon discharge the patient will be discharged home with home health services. Appropriate clearances by PCP and cardiology were obtained. History of Present Illness Chief Complaint: Right knee pain/DJD Primary Care Provider: Dominick Venegas The patient is a 55 year old male who presents with complaints of severe right knee pain and DJD. The patient has failed outpatient conservative treatments to this point which included NSAIDs, IA corticosteroid injection, DOTY injection, bracing and a home exercise/walking program. The patient's pain and limited function have progressed to the point where they severely hinder their activities of daily living and they no longer tolerate exercise programs. They are requesting to proceed with total knee replacement surgery. Allergies Allergy/AdvReac Type Severity Reaction Status Date / Time No Known Allergies Allergy Verified 03/17/21 07:38 Home Medications Medication Instructions Recorded Confirmed Type carvedilol [Coreg] 12.5 mg PO BID 01/12/19 03/17/21 History hydrochlorothiazide 50 mg PO QAM 01/12/19 03/17/21 History lisinopril 20 mg PO QAM 01/12/19 03/17/21 History acetaminophen [Pain Reliever] 1,000 mg PO Q8 PRN #90 tab 02/07/19 03/17/21 Rx aspirin [Aspir-81] 81 mg PO DAILY 02/13/21 03/17/21 History diclofenac sodium [Voltaren] 2 g TOPICAL UD PRN 02/13/21 03/17/21 History meloxicam [Mobic] 15 mg PO DAILY 02/13/21 03/17/21 History Past Med/Surg History Medical History CAD (coronary artery disease) NON-OBSTRUCTIVE Dilated cardiomyopathy By echo 12/12/2018, EF 35%. By cardiac cath 01/26/2019, EF 45-50%. Mild to moderate global hypokinesis. Hyperlipidemia BORDERLINE Hypertension Obesity TONI (obstructive sleep apnea) "MILD" "BORDERLINE" - DEVICE RECOMMENDED, PT DECLINED Osteoarthritis Pre-diabetes Surgical History History of cardiac cath 12/2018= NO STENTS History of total hip arthroplasty LEFT History of total right hip arthroplasty Family History Father Family history of reaction to anesthesia POST OP CARDIAC SURGERY-"FATHER WAS IN AND OUT FOR A WEEK" Family history of diabetes mellitus Father No problems noted. Mother Family history of diabetes mellitus Social History Smoking Status: Never smoker Second Hand Exposure: Yes (ON OCC-MOTHER SMOKES); Do You Dip or Chew Tobacco: No; Hx Alcohol Use: No Hx Substance Use: No Preferred Language: Citizen Of [place] Communication Ability: Effective Ticket Broker Required: No Beliefs That Will Affect Care: None marital status: Current Living Situation: Spouse and Family Other Information That Helps Us Care for You: No Feels Safe at Home: Yes Assistive Devices: Glasses Review of Systems Review of Systems: All systems reviewed & are unremarkable except as noted in HPI & below Constitutional: as per Subjective / HPI Physical Exam Physical Exam: RLE NVSI +EHL/FHL/TA/GS SILT grossly, +2 DP pulse, compartments soft NT, limited painful ROM, 0-110 degrees of flexion, +crepitus. Constitutional: WD/WN, vitals as above Eyes: PERRL, conjunctivae normal, anicteric sclerae ENMT: external ear and nose normal, oropharynx normal Neck: trachea midline, no thyromegaly Respiratory: normal respiratory effort, lungs clear to auscultation Cardiovascular: RRR, no murmur, no edema Gastrointestinal (Abdomen): normal bowel sounds, soft, nontender, no hepatosplenomegaly Musculoskeletal: no cyanosis or clubbing, extremities motor strength 5/5 Skin: no rashes, warm and dry Neurologic: patellar DTR's 2+ bilat, sensation intact Psychiatric: A+Ox3, euthymic affect Lymphatic: no cervical or axillary lymphadenopathy Results & Data Results & Data ([facility]) Diagnostic Findings Multiple views of the knee demonstrates severe tricompartmental DJD with complete loss of the medial joint space. +osteophytes, +sclerosis, +subchondral cysts. Pre Admission Testing Addendum Laboratory Results 02/18/21 14:02/18/21 14: PT 10.2 Seconds (9.0-12.0) 02/18/21: INR 1.0 (0.9-1.1) 02/18/21 14: APTT 27.9 Seconds (21.0-31.0) 02/18/21 14: Hemoglobin A1c 6.4 % (4.5-5.6) H 02/18/21: Urine Color Yellow 02/18/21: Urine Appearance Clear (Clear) 02/18/21 14: Urine pH 5.0 (4.5-7.5) 02/18/21: Ur Specific [place] 1.015 (1.000-1.030) 02/18/21: Urine Protein Negative (Negative) 02/18/21 14: Urine Glucose (UA) Negative (Negative) 02/18/21 14: Urine Ketones Negative (Negative) 02/18/21: Urine Nitrite Negative (Negative) 02/18/21: Ur Leukocyte Esterase Negative (Negative) 02/18/21 14:21 Urine WBC (Auto) 0 /hpf (0-5) 02/18/21 14: Urine RBC (Auto) 0-4 /hpf (0-4) 02/18/21: U Hyaline Cast (Auto) 0 /lpf (0-5) 02/18/21: U Epithel Cells (Auto) 0-5 /lpf (0-5) 02/18/21 14: Urine Bacteria (Auto) Negative (Negative) 02/18/21 14: Blood Type O Positive 02/18/21 14: Antibody Screen NEGATIVE 02/18/21 14:
[~2021-03-17 06:58] MED LIST changes: -BUPIVACAINE 0.5 % 5 MG/1 ML PF 10ML VIAL ONE; -CEFAZOLIN 3000MG 65 ML IV SCH; -GABAPENTIN 300 MG x 3 PO SCH; +GABAPENTIN 600 MG DOSE PO SCH; +LR 500ML BOLUS, THEN 15ML/HR IV SCH; +METOCLOPRAMIDE HCL 10 MG TABLET PO SCH; -ROPIVACAINE 0.5% HCL/PF 150 MG, BUPIVACAINE 0.5% MPF 30 ML, EPINEPHrine 30MG/30ML (OR U... INFIL SCH; +ROPIVACAINE 0.5% HCL/PF 150 MG, BUPIVACAINE 0.75% MPF 20 ML, EPINEPHrine 30MG/30ML (OR ... INSTIL SCH; +Scopolamine 1 MG TDSY TD SCH
[2021-03-17] MEDS ORDERED: ROPIVACAINE 0.5% 5 MG/ML 30 ML VIAL ONE (07:38)
[2021-03-17] MEDS ORDERED: BUPIVACAINE 0.5 % 5 MG/1 ML PF 10ML VIAL ONE (07:39)
[2021-03-17] MEDS ORDERED: fentaNYL citrate 100 MCG/2 ML VIAL ONE (07:43)
[2021-03-17] MEDS ORDERED: MIDAZOLAM HCL 1 MG/ML 2ML VIAL ONE ×3 (07:43→10:28)
[2021-03-17] MEDS ORDERED: fentaNYL citrate 100 MCG/2 ML VIAL IV PRN (08:30)
[2021-03-17] MEDS ORDERED: ePHEDrine sulfate 50 MG/ML AMP IV PRN (08:30)
[2021-03-17] MEDS ORDERED: ATROPINE SULFATE 0.1 MG/ML 10ML SYR IV PRN (08:30)
--- NOTE | 2021-03-17 09:21 | History & Physical Bridge Note ---
Date of Service March 17, 2021 History & Physical Bridge Note I have examined the patient, reviewed the History & Physical and in the interval since the performance of the History & Physical I have noted the following changes of clinical significance: no changes noted
[2021-03-17] MEDS ORDERED: ORTHO JOINT ANESTHETIC ONE (09:28)
[2021-03-17] MEDS ORDERED: PROPOFOL IV EMULSION 10 MG/ML 20 ML VIAL IV ONE ×2 (10:44→10:45)
--- NOTE | 2021-03-17 11:45 | Post Operative Brief Note ---
Immediate Post Op Note v1 Date of Surgery March 17, 2021 Pre & Post Diagnosis Operation Date: 03/17/21 09:25 Pre-Op Diagnosis: Unilateral Primary Osteoarthritis, Right Knee Post-Op Diagnosis: Unilateral Primary Osteoarthritis, Right Knee I identified the patient and participated in the time-out.: Yes Procedure Operation Date: 03/17/21 09:25 Actual Procedures p Right Total Knee Arthroplasty, Cemented(Right) - Puneet De La Cruz DO Surgeon Puneet De La Cruz DO Spindraw Operator Eduardo Scott Estimated Blood Loss 85 Findings Consistent with Post-Op Diagnosis Fluids See anesthesia report Specimens Proximal tibia and distal femur bone fragments, multiple loose bodies Anesthesia Type Spinal MAC Complications none Disposition Disposition: Recovery Room Overlapping Procedure I was present for: the critical portions of procedure. I was immediately available: during the entire case. Back up surgeon: was not required during procedure.
--- NOTE | 2021-03-17 11:47 | Operative Report ---
Post Operative Report Pre & Post Diagnosis Operation Date: 03/17/21 09:25 Pre-Op Diagnosis: Unilateral Primary Osteoarthritis, Right Knee Post-Op Diagnosis: Unilateral Primary Osteoarthritis, Right Knee I identified the patient and participated in the time-out.: Yes Procedure Operation Date: 03/17/21 09:25 Actual Procedures p Right Total Knee Arthroplasty, Cemented(Right) - Puneet De La Cruz DO Surgeon Puneet De La Cruz DO Paper Cutter Operator Eduardo Scott Estimated Blood Loss 85 Findings Consistent with Post-Op Diagnosis Fluids See anesthesia report Specimens Proximal tibia and distal femur bone fragments, multiple loose bodies Anesthesia Type Spinal MAC Complications none Disposition Disposition: Recovery Room Indications The patient is a 49-year-old male presents with long history of severe right knee tricompartmental DJD and failed outpatient conservative treatments including NSAIDs, bracing, injections and home walking/exercise program. The patient's symptoms have progressed to the point where it has been difficult to perform normal activities of daily living. I have indicated the patient for a right total knee arthroplasty, the risks and benefits and complications of the procedure include but are not limited to infection bleeding damage to bone, nerves, vessels, surrounding soft tissue, blood clots, loss of function, leg length discrepancy, dislocation, failure of the components, need for additional surgery and . The patient wished to proceed with surgery at this time and informed consent was obtained. Appropriate clearances were obtained. Description of Procedure COMPONENTS USED: Maile persona knee system: Femur size 10, Tibia size G, Tibial articulating surface 10 PS, Patella 38 mm Following induction of spinal anesthesia, a tourniquet was applied to the proximal aspect of the thigh and the patient's right leg was prepped and draped in the usual sterile manner. A timeout was performed, patient identified and site gautam confirmed. Appropriate pre-operative IV antibiotics were given. The limb was exsanguinated with an Esmarch bandage and tourniquet was inflated to 300 mmHg. A longitudinal midline incision was made over the anterior knee. Subcutaneous tissue was sharply dissected down to fascia. Electrocautery was used for hemostasis. Next a parapatellar arthrotomy was performed. Patella was everted and the knee was flexed. A Rodriguez retractor was used to expose the synovium above on the anterior aspect of the femur and removed down to bone. Next, the anterior fat pad was removed to aid in visualization. The medial face of the tibia was cleared of soft tissue first with a Bovie and a dubon elevator. This tissue was retracted posteriorly using a blunt Hohmann. Next, the extra-medullary tibial cutting guide was placed to the anterior aspect of the tibia. The tibia resection level was set taking 2mm from the defective tibial condyle. Resection depth was once again confirmed with chu wing. The medial and lateral collateral ligament was protected with two Hohmann retractors. The tibia guide was removed and proximal tibial bone fragment shala jennifer utilizing straight osteotome, electrocautery and Josh. Next, the distal femur intramedullary canal was accessed utilizing the step drill. The intramedullary distal femur cutting guide was placed into the canal and pinned into place. The distal femur was cut on the 5 degree setting. Next the cutting guide was removed and the femur was sized. Care was taken to ensure appropriate gore stitcher all rotation and 3 degree holes were drilled. A size 10 4-in-1 cutting block was placed on the distal end of the femur and secured into place with two short headed screws. Two bent Hohmann retractors were placed to protect the medial and lateral collateral ligaments. The oscillating saw was used to cut anterior, posterior, anterior chamfer and posterior chamfer. The four and one cutting block was removed and bone fragments excised. Laminar parking assistant was placed laterally and the ACL and PCL were removed followed by the medial meniscus and posterior medial osteophytes. Aquamantys was utilized for any posterior medial bleeders and Orthomix injected into the posterior medial capsule. A laminar parking assistant was then placed in the medial compartment and the lateral meniscus and posterior osteophytes were removed. Aquamantys was utilized for any posterior lateral bleeders and Orthomix injected into the posterior lateral capsule. Next, drop lion and spacer block were placed with the leg in flexion and extension to assess alignment and flexion/extension gaps. Next, the proximal tibia was assessed and two bent Hohmans were placed medial and lateral to aid in visualization. The appropriate tibia size and rotation was selected and a size G tibial plate was pinned into place with appropriate rotation. Preparation of the tibia was completed utilizing the matching tibial drill and broach. I then turned my attention back to the distal femur in a trial femoral component was impacted into place. Appropriate femoral width was assessed and selected. Next the femur PS box cut guide was placed and cut made with the reciprocal saw and the PS box provisional placed. A trial size 10 PS tibia articular tray was placed and varus-valgus balance assessed in 0 degrees of extension and 30, 60 and 90 degrees of flexion. A final tibial articular surface size 10 PS was chosen. Assess was gained to the patella and caliper utilized to measure width. The patella reamer was utilized and remaining bone removed with oscillating saw. A size 38 mm patella button was selected and the patella pegs drilled. Trial patella button was placed and tracking was assessed. The knee was found to be well balanced, well aligned with excellent patella tracking. The trials were removed and final components were obtained and assembled. The knee was irrigated copiously with sterile saline solution mixed with bacitracin. Access to the proximal tibia was once again obtained utilizing to the Hohmans and the proximal tibia and distal femur were dried with lap sponges. The final components were cemented into place and all excess cement was removed. A trial tibial articular surface was placed while cemented hardened. Knee stability was once again assessed and the final component inserted. A Betadine soak was performed. After 3 minutes, the knee was once more irrigated with copious sterile saline solution with bacitracin. The knee was injected with the remaining Orthomix which includes a combination of Ropivicaine 0.5% 150mg, Bupivicaine 0.5%/Epinephrine 1:200,000 30ml, Toradol 30mg, Dexamethasone 4mg, Ketamine 10mg, Clonidine 100mcg and NSS 30ml solution. The capsulotomy was closed with #1 Vicryl followed by subcutaneous closure with 2-0 Vicryl suture and a 3-0 V-lock suture. The skin was closed with marley. A sterile dry dressing was applied which included demond incisional VAC, web roll and Gary wrap. Tourniquet was deflated at 110 minutes. The patient tolerated the procedure well and was taken to the PACU in stable condition. Due to the complex nature of the procedure, the entire surgery was performed with the operational assistance of Eduardo Scott PA-C. The phlebotomist lab assistant, under direct supervision, was involved in the actual performance of all aspects of the surgical procedure including patient positioning, hemostasis, tissue retraction, instrument management and wound closure. I attest to the content of the Intraoperative Record and any orders documented therein. Any exceptions are noted below.
--- NOTE | 2021-03-17 12:47 | XRay Report ---
XR knee RT 1 or 2V routine CLINICAL HISTORY: Postoperative evaluation. COMPARISON: None FINDINGS: Alignment of the total right knee arthroplasty is anatomic. There is no periprosthetic fra cture or unexpected radiopaque foreign body. There are skin marley. IMPRESSION: Expected findings following total right knee arthroplasty. ACT 112: Negative or not required by law. Electronically signed by: Álvaro Truong M.D. 03/17/2021 12:46 PM
--- NOTE | 2021-03-17 13:22 | Anesthesiology Progress Note ---
Date of Service March 17, 2021 Anesthesia Post Procedure Vital Signs Vital Signs: Temp Pulse Pulse Resp BP Pulse Ox 03/17/21 13:05 36.4 C L 60 12 132/70 97 03/17/21 12:55 36.4 C L 63 12 128/78 97 03/17/21 12:45 76 15 135/69 98 03/17/21 12:35 77 14 128/74 96 03/17/21 12:25 72 16 123/74 96 03/17/21 12:15 36.4 C L 72 14 124/73 99 03/17/21 07:32 36.9 C 82 20 156/93 H 95 Transfer of Care Handoff Completed per policy Notes Mental Status: alert / awake / arousable and participated in evaluation Patient Amnestic to Procedure: Yes Nausea / Vomiting: adequately controlled Pain: adequately controlled Airway Patency, RR, SpO2: stable & adequate BP & HR: stable & adequate Hydration State: stable & adequate Neuraxial Anesthesia: was administered and sensory block is resolving Anesthetic Complications: no major complications apparent
[2021-03-17] MEDS ORDERED: METOCLOPRAMIDE HCL INJ 5 MG/ML 2 ML VIAL IV PRN (13:28)
[2021-03-17] MEDS ORDERED: oxyCODONE HCL IR 5 MG TAB (IMMEDIATE RELEASE) PO PRN (13:28)
[2021-03-17] MEDS ORDERED: ceFAZolin 2000MG 2,000 MG/15 ML SYR IV SCH (13:28)
[2021-03-17] MEDS ORDERED: diphenhydrAMINE Capsule 25 MG CAP PO PRN (13:28)
[2021-03-17] MEDS ORDERED: MAGNESIUM HYDROXIDE SUSP 30 ML UDC PO PRN (13:28)
[2021-03-17] MEDS ORDERED: HYDROmorphone INJ 0.5 MG/0.5 ML SYR IV PRN (13:28)
[2021-03-17] MEDS ORDERED: ONDANSETRON INJ 2 MG/ML 2 ML VIAL IV PRN (13:28)
[2021-03-17] MEDS ORDERED: NALOXONE HCL 0.4 MG/1 ML VIAL/CARP IV PRN (13:28)
[2021-03-17] MEDS ORDERED: bisacodyL 10 MG SUPP PR PRN (13:28)
[2021-03-17] MEDS: SODIUM CHLORIDE 0.9% 1000ML 1,000 ML IV SCH (13:51)
[2021-03-17] MEDS: ACETAMINOPHEN 500 MG TAB PO SCH ×2 (14:06→22:08)
[2021-03-17] MEDS: KETOROLAC TROMETHAMINE 15 MG/ML VIAL IV SCH ×2 (14:07→20:30)
--- NOTE | 2021-03-17 14:34 | Orthopedic Progress Note ---
Date of Service March 17, 2021 Assessment & Plan (1) Degenerative joint disease of knee, right: Status post right total knee arthroplasty -Ancef x24 -DVT prophylaxis: SCDs, teds, 81 mg ASA twice daily -Weight-bear as tolerates right lower extremity -PT/OT -Postoperative x-ray demonstrates a well aligned well fixed prosthesis without fracture or dislocation A.m. labs DC planning Admission and Anticipated Discharge Date Admission Date: March 17, 2021 Subjective Post Operative Progress Note Patient seen sitting up in bed, comfortable, denies complaints, pain well controlled, no acute issues. Review of Systems Review of Systems: All systems reviewed & are unremarkable except as noted in HPI & below Constitutional: as per Subjective / HPI Physical Exam Physical Exam: RLE NVSI +EHL/FHL/TA/GS SILT grossly, +2 DP pulse, compartments soft NT, dressing cdi. Constitutional: WD/WN, vitals as above Results & Data ([facility]) Vital Signs (Past 12 Hours) Vital Signs Temp Pulse Pulse Resp BP Pulse Ox 03/17/21 13:53 36.9 C 83 18 148/80 H 95 03/17/21 13:30 36.4 C L 84 18 142/84 H 95 03/17/21 13:05 36.4 C L 60 12 132/70 97 03/17/21 12:55 36.4 C L 63 12 128/78 97 03/17/21 12:45 76 15 135/69 98 03/17/21 12:35 77 14 128/74 96 03/17/21 12:25 72 16 123/74 96 03/17/21 12:15 36.4 C L 72 14 124/73 99 03/17/21 07:32 36.9 C 82 20 156/93 H 95
[2021-03-17] MEDS: Scopolamine CHECK PATCH PLACEMENT SCH (16:33)
[2021-03-17] MEDS: ceFAZolin 3,000 MG in DEXTROSE 5% 50 ML IV SCH (18:06)
[2021-03-17] MEDS: DOCUSATE SODIUM 100 MG CAP PO SCH (20:33)
[2021-03-17] MEDS: carvediloL 12.5 MG TAB PO SCH (20:33)
[2021-03-17] MEDS ORDERED: SENNA 8.6 MG TAB PO SCH (21:00)
[2021-03-18] MEDS: Scopolamine CHECK PATCH PLACEMENT SCH ×2 (00:41→08:58)
[2021-03-18] MEDS: SODIUM CHLORIDE 0.9% 1000ML 1,000 ML IV SCH (00:44)
[2021-03-18] MEDS: ceFAZolin 3,000 MG in DEXTROSE 5% 50 ML IV SCH (01:59)
[2021-03-18] MEDS: KETOROLAC TROMETHAMINE 15 MG/ML VIAL IV SCH ×2 (01:59→08:59)
[2021-03-18] MEDS: ACETAMINOPHEN 500 MG TAB PO SCH ×2 (05:33→13:38)
[2021-03-18 06:18] LABS: Hematocrit (blood only) 33.3 % (42-52); Hemoglobin 11.3 g/dL (14.0-18.0); Mean Corpuscular Hemoglobin 30.3 pg (25-34); Mean Corpuscular Hgb Conc 33.9 g/dL (32-36); Mean Corpuscular Volume 89.3 fL (80-100); Mean Platelet Volume 11.1 fL (7.4-10.4); Platelet Count 243 K/uL (130-400); RDW Coefficient of Variation 13.3 % (11.5-14.5); RDW Standard Deviation 43.8 fL (36.4-46.3); Red Blood Count 3.73 M/uL (4.7-6.1); White Blood Count 15.27 K/uL (4.8-10.8)
[2021-03-18 06:44] LABS: BUN Creatinine Ratio 19.5 (10-20); Calcium 8.1 mg/dl (8.5-10.1); Creatinine Clr Calc Pharmacy 104.6 ml/min; Est GFR (African American) 83.8; Est GFR (Non-African American) 72.3; Potassium 3.8 mmol/L (3.5-5.1)
[2021-03-18] MEDS: carvediloL 12.5 MG TAB PO SCH (08:59)
[2021-03-18] MEDS ORDERED: lisinopril 20 MG TAB PO SCH (09:00)
[2021-03-18] MEDS ORDERED: hydroCHLOROthiazide 25 MG TAB PO SCH (09:00)
[2021-03-18] MEDS ORDERED: ASPIRIN 81 MG ECTAB PO SCH (09:00)
[2021-03-18] MEDS ORDERED: MULTIVITAMIN TAB PO SCH (09:00)
[2021-03-18] MEDS: DOCUSATE SODIUM 100 MG CAP PO SCH (09:05)
--- NOTE | 2021-03-18 11:49 | Orthopedic Progress Note ---
Date of Service March 18, 2021 Assessment & Plan (1) Degenerative joint disease of knee, right: Status post right total knee arthroplasty POD#1 -Ancef x24 -DVT prophylaxis: SCDs, teds, 81 mg ASA twice daily -Weight-bear as tolerates right lower extremity -PT/OT -Postoperative x-ray demonstrates a well aligned well fixed prosthesis without fracture or dislocation A.m. labs - as above, hgb 11.3 DC planning - home with HH Admission and Anticipated Discharge Date Admission Date: March 17, 2021 Subjective Post Operative Progress Note Patient seen sitting in chair at bedside, comfortable, denies complaints, pain well controlled, no acute issues. Review of Systems Review of Systems: All systems reviewed & are unremarkable except as noted in HPI & below Constitutional: as per Subjective / HPI Physical Exam Physical Exam: RLE NVSI +EHL/FHL/TA/GS SILT grossly, +2 DP pulse, compartments soft NT, dressing cdi. Constitutional: WD/WN, vitals as above Results & Data ([facility]) Vital Signs (Past 12 Hours) Vital Signs Temp Pulse Resp BP Pulse Ox 03/18/21 09:05 80 135/72 96 03/18/21 07:10 36.4 C L 63 18 116/63 97 03/18/21 02:30 36.3 C L 89 18 116/54 L 94 Diagnostic Findings 03/18/21 03/18/21 03/17/21 Range/Units 05:25 05:25 07:24 WBC 15.27 H (4.8-10.8) K/uL RBC 3.73 L (4.7-6.1) M/uL Hgb 11.3 L (14.0-18.0) g/dL Hct 33.3 L (42-52) % MCV 89.3 (80-100) fL MCH 30.3 (25-34) pg MCHC 33.9 (32-36) g/dL RDW Std Deviation 43.8 (36.4-46.3) fL RDW Coeff of Vickey 13.3 (11.5-14.5) % Plt Count 243 (130-400) K/uL MPV 11.1 H (7.4-10.4) fL Sodium 141 (136-145) mmol/L Potassium 3.8 (3.5-5.1) mmol/L Chloride 108 H (98-107) mmol/L Carbon Dioxide 26 (21-32) mmol/L Anion Gap 7.0 (3-11) BUN 22 H (7-18) mg/dl Creatinine 1.13 (0.6-1.4) mg/dl Est Cr Clr Drug Dosing 104.6 ml/min Est GFR ( Amer) 83.8 Est GFR (Non-Af Amer) 72.3 BUN/Creatinine Ratio 19.5 (10-20) Glucose 148 H (70-99) mg/dl Calcium 8.1 L (8.5-10.1) mg/dl Hepatitis C Ab Screen Neg (Neg)
--- NOTE | 2021-03-18 17:49 | Discharge Summary ---
Date of Service March 18, 2021 Admission HPI Per Admitting Provider The patient is a 55 year old male who presents with complaints of severe right knee pain and DJD. The patient has failed outpatient conservative treatments to this point which included NSAIDs, IA corticosteroid injection, DOTY injection, bracing and a home exercise/walking program. The patient's pain and limited function have progressed to the point where they severely hinder their activities of daily living and they no longer tolerate exercise programs. They are requesting to proceed with total knee replacement surgery. Principal Diagnosis Right total knee replacement Discharge Exam RLE NVSI +EHL/FHL/TA/GS SILT grossly, +2 DP pulse, compartments soft NT, dressing cdi. Constitutional WD/WN, vitals as above Discharge Data Allergies Allergy/AdvReac Type Severity Reaction Status Date / Time No Known Allergies Allergy Verified 03/17/21 07:38 Procedures Performed Operation Date: 03/17/21 09:25 Actual Procedures p Right Total Knee Arthroplasty, Cemented(Right) - Puneet De La Cruz DO Ordered Studies 03/17/21 05:00 US - OR guided needle placemen Routine Hospital Course (1) Degenerative joint disease of knee, right: The patient is a 55 -year-old male who presents with long standing history of severe right knee DJD and failed outpatient conservative treatments. The patient's symptoms have progressed to the point where it has been difficult to perform even normal activities of daily living. I indicated the patient for a right total knee arthroplasty, the risks, benefits and complications of the procedure include but not limited to infection, bleeding, damage to bone, nerves, vessels, surrounding soft tissue, may develop blood clots, loss of function, leg length discrepancy, dislocation, failure of the components, loosening of the components, the need for additional surgery and . The patient wished to proceed with surgery at this time and informed consent was obtained. Hospital Course: On 03/17/21 the patient was taken to the operating room, adequate anesthesia administered and underwent a right total knee arthroplasty. The patient tolerated the procedure well and was taken to the PACU in stable condition. Post-operatively the patient was started on a DVT ppx medication and given appropriate IV antibiotics. Consults were placed to physical therapy, occupational therapy and case management. On POD#1, the patient did well overnight and their pain was well controlled. Labs were drawn and the Hgb was 11.3. The patient progressed well with PT. Dressings were changed at this time and the incision was clean, dry and intact. The patients hospital stay was relatively uneventful and they were deemed stable by the orthopedic team and consultants to be discharged home with HH on 03/18/21. Discharge Instructions: Upon discharge the patient may weight bear as tolerates through their operative extremity. They were instructed to keep the incision clean and dry at all times. The patient may shower but should not submerge the incision, avoid bathing, pools and hot tubs. The patient was given a script for pain medication and should take as instructed. The patient was given a script for DVT ppx 81mg ASA BID and should take as directed. The patient was instructed to not drive or travel for long distances until cleared to do so. If the patient develops any symptoms of fevers, chills, nausea, vomiting, increased redness, swelling, pain or drainage from the surgical site, they should notify the office and/or proceed to the nearest emergency room. The patient should follow up in 10-14 days after surgery for their routine post-operative follow-up appointment and should call the office, to confirm the date and time. Status post right total knee arthroplasty POD#1 -Ancef x24 -DVT prophylaxis: SCDs, teds, 81 mg ASA twice daily -Weight-bear as tolerates right lower extremity -PT/OT -Postoperative x-ray demonstrates a well aligned well fixed prosthesis without fracture or dislocation A.m. labs - as above, hgb 11.3 DC planning - home with Total Time Total Time Spent Total Time Spent (In Minutes): 30 Discharge Plan Discharge Items Patient Disposition: Home - Home Health Services Reason For Visit: Unilateral Primary Osteoarthritis, Right Knee Discharge Diagnosis: Right total knee replacement Condition on Discharge: Good Activity: Per Instructions section Lifting: Wait until after follow-up appointment Bathing: Keep incision dry Bathing Comment: No bathing, pools, hot tubs. Sexual Activity: Wait until after follow-up appointment Exercise/Sports: Wait until after follow-up appointment Driving/Machine Use: No driving Weightbearing: Full weightbearing Non-emergency contact: Primary Care Provider and Surgeon Call non-emergency contact if: you have any medication questions, your symptoms worsen, your pain is not controlled, your pain is worsening, your pain is unusual for you, your pain is concerning for you, you have a fever, your temperature is above 101, your wound has increased redness, your wound has increased drainage and your wound pain has increased Follow-up/Referrals: Dominick Venegas M.D. [Primary Care Provider] - Diet: Regular Addtl Attending Provider Instructions: ACTIVITY RECOMMENDATIONS: SELF CARE INSTRUCTIONS AFTER TOTAL KNEE REPLACEMENT A. You may need to continue a physical therapy program after discharge from the hospital. There are several options available to you. Your doctor will assist you in selecting the best one for you. 1. An out-patient facility 2 to 3 times a week for therapy or home therapy. 2. Continue working on all exercises taught to you in the hospital. Your goals should be to increase bending of your knee to 90 degrees and beyond and to fully straighten your knee. B. You may progress at your own pace from walking with a walker or crutches to a cane; then to no assistive devices. C. Make walking a part of your daily routine. Be up as much as comfortable with rest periods throughout the day. Rest with leg elevation is very important. Use the ice wrap frequently for the first 3-4 weeks. D. There are no restrictions on activities. You may ride in a car, shop, participate in consumer education specialist and all social activities. E. Wear the long elastic stockings (BIBIANA hose) 20 hours a day for 2 weeks after surgery. They can be removed several times a day for laundering and for a bath. F. You may shower, no tub baths until cleared by your doctor. SPECIAL CARE INSTRUCTIONS: VERY IMPORTANT TO READ AND REVIEW A. There are a few signs you need to watch for after you are home. Call [facility] if you notice any of the followin. Increased severe knee pain. Some pain is expected especially when you exercise. 2. Increased swelling in your leg or knee; pain or swelling of the calf muscle in either lower leg. 3. Any fluid drainage from the incision. 4. Shortness of breath or chest pain. B. Please call [facility] at if you have any concerns or questions about your operation or recovery. The doctor or his nurse will return your call promptly. C. You must take antibiotics before dental work, bladder, bowel or other surgery. Your doctor will provide you with a permanent care to carry describing this precaution. IMPORTANT: * REMEMBER TO TAKE ASPIRIN, 81 MG, TWICE DAILY FOR 4 WEEKS UNLESS OTHERWISE DIRECTED. THIS IS YOUR BLOOD THINNER. * HIGH RISK PATIENTS MAY BE PRESCRIBED A STRONGER BLOOD THINNER. THIS WILL BE PROVIDED AT DISCHARGE. * CALL IF INCREASED PAIN, REDNESS, DRAINAGE OR FEVER GREATER THAT 101. * WEAR BIBIANA HOSE 20 HOURS PER DAY FOR 2 WEEKS. *Juan Daniel incisional vac is a special dressing covering your incision. This dressing provides a sterile dry environment while you are healing. The dressing is to be left in place for 7 days post-operatively. Your home nurse or surgeon will remove. If you develop any redness or blisters or have any questions notify your surgeon immediately. FOLLOW UP VISIT: If appointment is not already scheduled: Please call [facility] to make a follow-up appointment for 2 weeks after your surgery at . Pending Studies at Discharge: No Stand-Alone Forms: [facility], Opioid Pain Management, Smoking Cessation Medications and DC Order Prescriptions: New celecoxib [Celebrex] 200 mg Capsule 200 mg PO BID PRN (Reason: Pain\inflammation) Qty: 30 RF: 0 aspirin 81 mg Tablet,Delayed Release (Dr/Ec) 81 mg PO BID Qty: 56 RF: 0 acetaminophen 500 mg Tablet 1,000 mg PO Q8 PRN (Reason: pain/fevers) Qty: 90 RF: 0 oxycodone 5 mg Tablet 5 mg PO Q6H MDD 4 PRN (Reason: pain) Qty: 30 RF: 0 sennosides [Senokot] 8.6 mg Tablet 17.2 mg PO HS PRN (Reason: constipation) Qty: 30 RF: 0 Continued carvedilol [Coreg] 12.5 mg Tablet 12.5 mg PO BID RF: 0 hydrochlorothiazide 50 mg Tablet 50 mg PO QAM RF: 0 lisinopril 20 mg Tablet 20 mg PO QAM RF: 0 diclofenac sodium [Voltaren] 1 % Gel 2 g TOPICAL UD PRN (Reason: Pain) RF: 0 Discontinued acetaminophen [Pain Reliever (acetaminophen)] 500 mg Tablet 1,000 mg PO Q8 PRN (Reason: pain) Qty: 90 RF: 0 meloxicam [Mobic] 15 mg Tablet 15 mg PO DAILY RF: 0 aspirin [Aspir-81] 81 mg Tablet,Delayed Release (Dr/Ec) 81 mg PO DAILY RF: 0 Discharge Orders: Discharge Order (Routine); Ordered 03/18/21 Ordered By: Pnueet Zamudio/Other Patient Handouts: Prediabetes, Total Knee Replacement, 5 Steps for Eating Healthier, Knee Replacement Total Dc, A1C Admission Data Admit Date/Time: 03/17/21 12:18 Attending Provider: Puneet De La Cruz Admit Provider: Puneet De La Cruz Primary Care Provider: Dominick Venegas Other Interventions: Discharge Summary Assessment (RN) Last Done: 03/18/21 13:25
[2021-03-18] MEDS ORDERED: CeleBREX 200 MG CAP PO SCH (21:00)
== END 2021-03-18 15:22 | disposition home health service (06) | DRG 470 ==
LOC: ASU 06:58 → 3E 06:58 → OBSVTOIN 12:18